=== PATIENT | male | born 1975 | race Caucasian/White ===

== ENCOUNTER 2017-05-02 00:09 | Inpatient (IN) | payer OTHER ==
[2017-05-02] MEDS ORDERED: morphine CARPU-JECT 4 MG/1 ML DISP.SYRIN IVPUSH ONE (01:53)
[2017-05-02] MEDS ORDERED: SODIUM CHLORIDE 0.9% 1000 ML INFUS.BAG IV ONE (01:53)
[2017-05-02] MEDS ORDERED: ACETAMINOPHEN 1000 MG/100 ML VIAL (NON FORMULARY) IVPB ONE (02:02)
--- NOTE | 2017-05-02 02:28 | PDOC ---
History of Present Illness - General Stated Complaint: ABDOMINAL PAIN, BLOOD IN STOOL Time Seen by Provider: 05/02/17 01:28 History Source: Patient Exam Limitations: No Limitations - History of Present Illness Initial Comments: 05/02/17 02:18 The patient is a 41M with a PMH of bipolar disorder on lithium, sleep disorder on seroquel, and unspecified GI disorder who presents to the ED with acute onset abdominal pain. The patient states that the pain started at 1700 on abruptly and is associated with bloody diarrhea that occurs with straining. The abdominal pain is located in his suprapubic and RLQ regions, is described as sharp, and radiates down to his testicles. He states that he has had abdominal pain in the past but it has never been this bad, to the point where he had tears in his eyes due to the pain. He admits to having no appetite, vomiting, and feeling nauseous in addition to the abdominal pain. He has not tried taking anything for the pain but is requesting morphine. He denies any testicular swelling, rashes, penile discharge. Past History - Past Medical History Allergies/Adverse Reactions: Allergies Allergy/AdvReac Type Severity Reaction Status Date / Time No Known Allergies Allergy Verified 05/02/17 01:46 Home Medications: Ambulatory Orders NK [No Known Home Medication] 05/02/17 - Suicide/Smoking/Psychosocial Hx Smoking History: Never smoked Have you smoked in the past 12 months: No Information on smoking cessation initiated: No Hx Alcohol Use: No Drug/Substance Use Hx: No Review of Systems - Review of Systems Able to Perform ROS?: Yes Comments:: 05/02/17 02:56 GENERAL/CONSTITUTIONAL: Positive for loss of appetite. No fever or chills. No weakness. HEAD, EYES, EARS, NOSE AND THROAT: No change in vision. No ear pain or discharge. No sore throat. GASTROINTESTINAL: Positive for abdominal pain, nausea, vomiting, and bloody diarrhea. GENITOURINARY: No dysuria, frequency, hematuria, or change in urination. CARDIOVASCULAR: No chest pain, palpitations, or lightheadedness. RESPIRATORY: No cough, wheezing, shortness of breath, or hemoptysis. MUSCULOSKELETAL: No joint or muscle swelling or pain. No neck or back pain. SKIN: No rash or lesions. NEUROLOGIC: No headache, numbness, tingling, weakness, loss of consciousness, or change in strength/sensation. ENDOCRINE: No increased thirst. No abnormal weight change. HEMATOLOGIC/LYMPHATIC: No anemia, easy bleeding, or history of blood clots. ALLERGIC/IMMUNOLOGIC: No hives or skin allergy. Is the patient limited Ivorian proficient: No *Physical Exam - Vital Signs Last Vital Signs Temp Pulse Resp BP Pulse Ox 98.8 F 97 H 16 158/96 98 05/02/17 01:39 05/02/17 01:39 05/02/17 01:39 05/02/17 01:39 05/02/17 01:39 - Physical Exam Comments: 05/02/17 02:57 GENERAL: Well developed, well nourished. Awake and alert. No acute distress. HEENT: Normocephalic, atraumatic. Hearing grossly normal. Moist mucous membranes. PERRLA, EOMI. No conjunctival pallor. Sclera are non-icteric. NECK: Supple. Full ROM. No JVD. Carotid pulses 2+ and symmetric, without bruits. CARDIOVASCULAR: Regular rate and rhythm. No murmurs, rubs, or gallops. PULMONARY: No evidence of respiratory distress. Lungs clear to auscultation bilaterally. No wheezing, rales or rhonchi. ABDOMINAL: Diffuse tenderness and RLQ quadrant guarding. GENITOURINARY: CVA tenderness bilaterally. MUSCULOSKELETAL: Normal range of motion at all joints. No bony deformities or tenderness. EXTREMITIES: No cyanosis. No clubbing. No edema. No calf tenderness. SKIN: Warm and dry. Normal capillary refill. No rashes. No jaundice. NEUROLOGICAL: Alert, awake, appropriate. Cranial nerves 2-12 intact. Normal speech. Gait is normal without ataxia. PSYCHIATRIC: Cooperative. Good eye contact. Appropriate mood and affect. ED Treatment Course - LABORATORY CBC & Chemistry Diagram: 05/02/17 02:34 05/02/17 02:34 - RADIOLOGY Radiology Studies Ordered: Category Date Time Status ABDOMEN & PELVIS CT WITH CONTR [CT] Stat CT Scan 05/02/17 01:57 Ordered CHEST X-RAY PORTABLE* [RAD] Stat Radiology 05/02/17 01:53 Taken - Medications Given in the ED: ED Medications Discontinued Medications Generic Name Dose Route Start Last Admin Trade Name Freq PRN Reason Stop Dose Admin Morphine Sulfate 4 mg 05/02/17 01:53 05/02/17 02:12 Morphine Injection - IVPUSH 05/02/17 01:54 Not Given ONCE ONE Medical Decision Making - Medical Decision Making 05/02/17 03:00 The patient is a 41M with a PMH of psych disorders and unspecified GI disorder who presents to the ED after having an acute onset of abdominal pain with associated bloody diarrhea and nausea with vomiting. He has diffuse guarding and I am concerned for an appendicitis. He has an Butt score of 6. Will order pre-op labs and CTAP with IV contrast. Pt has occult + stool. 05/02/17 03:24 I obtained a CXR to r/o perforation. Preliminary read is negative for free air. 05/02/17 04:15 CTAP shows Mild left-sided colitis could be due to infection, Crohn's disease or bowel ischemia. Added abx. 05/02/17 05:05 Dr. Marmolejo accepts admission for inpatient med-surg bed. *DC/Admit/Observation/Transfer Diagnosis at time of Disposition: Diverticulitis - Discharge Dispostion Condition at time of disposition: Fair Admit: Yes - Referrals Referrals: Errol Yang [Primary Care Provider] - - Patient Instructions - Post Discharge Activity
[2017-05-02 02:42] LABS: BASO % 0.2 % (0-2.0); EOS % 0.3 % (0-4.5)
[2017-05-02] MEDS ORDERED: ACETAMINOPHEN INJECTION 100 ML IVPB ONE (02:45)
[2017-05-02 02:56] LABS: INR 1.11 (0.82-1.09); PROTHROMBIN TIME (PATIENT) 12.5 SEC (9.98-11.88)
[2017-05-02 02:59] LABS: ACTIVATED PTT 28.1 SECONDS (26.9-34.4)
[2017-05-02 03:09] LABS: ALBUMIN 4.2 g/dl (3.4-5.0); ALK PHOS 68 U/L (45-117); ANION GAP 10 (8-16); BILIRUBIN,TOTAL 0.5 mg/dL (0.2-1.0); BLOOD UREA NITROGEN 16 mg/dL (7-18); CALCIUM 9.2 mg/dL (8.5-10.1); CHLORIDE 106 mmol/L (98-107); CO2 23 mmol/L (21-32); CREATININE 1.1 mg/dL (0.7-1.3); GLUCOSE,RANDOM 120 mg/dL (74-106); LIPASE 84 U/L (73-393); SGOT/AST 25 U/L (15-37); SGPT/ALT 21 U/L (12-78); SODIUM 139 mmol/L (136-145); TOT PROT 7.5 g/dl (6.4-8.2)
[2017-05-02] MEDS ORDERED: METRONIDAZOLE 500 MG PREMIXED 500 MG/100 ML MG IVPB ONE ×3 (04:04→08:54)
[2017-05-02] MEDS ORDERED: LEVOFLOXACIN 500 MG IVPB 500 MG/100 ML BAG IVPB ONE ×2 (04:04→04:31)
--- NOTE | 2017-05-02 04:05 | PDOC ---
Attending Attestation - Resident Resident Name: Louie Hunt - ED Attending Attestation I have performed the following: I have examined & evaluated the patient, The case was reviewed & discussed with the resident, I agree w/resident's findings & plan - HPI HPI: 05/02/17 04:04 Pt comes with abd pain - Physicial Exam PE: 05/02/17 04:30 Agree with resident exam. Pt has diffuse pain; no guarding at this point and no rebound. no fever and no chills. Everything else is normal. Pt is resting comfortably. - Medical Decision Making 05/02/17 04:03 Patient Name: TRISTA GOLDSTEIN THIS IS A PRELIMINARY REPORT FROM [facility]GR[facility] EQUIPMENT TECHNICIAN DATE OF SERVICE: 2017-05-02 03:27:48 IMAGES: [id number] EXAM: CT ABDOMEN AND PELVIS with contrast HISTORY: Right lower quadrant pain COMPARISON: None. FINDINGS: Subsegmental dependent atelectasis is noted. An old left rib fractures.. The visualized cardiac chambers are normal size and configuration. Normal liver, gallbladder, pancreas, spleen, adrenal glands and kidneys. The stomach and small bowel are normal. There is mild colonic inflammation extending from the distal transverse colon to the distal descending colon which may be due to infection, Crohn's disease or bowel ischemia. No bowel obstruction, abscess or free air. There is no aortic aneurysm. There is no significant retroperitoneal lymphadenopathy. The appendix is normal.. The urinary bladder and prostate gland are normal. No pelvic free fluid is identified. There is no significant pelvic lymphadenopathy. Is a small fat containing left inguinal hernia. IMPRESSION: Mild left-sided colitis could be due to infection, Crohn's disease or bowel ischemia. THIS DOCUMENT HAS BEEN ELECTRONICALLY SIGNED 05/02/17 04:31 ABx for the colitis. NSS and ofirmev; admit for GI bleed, infection and colitis. Pt will need GI follow up in or outpatient.
[2017-05-02 04:24] LABS: HEMATOCRIT 43.2 % (35.4-49); HEMOGLOBIN 14.8 GM/dL (11.7-16.9); LYMPH % 4.3 % (8-40); MCH 30.1 pg (25.7-33.7); MCHC 34.2 g/dl (32.0-35.9); MEAN CELL VOLUME 88.3 fl (80-96); MEAN PLT VOLUME 8.8 fl (7.5-11.1); MONO % 3.2 % (3.8-10.2); PLATELET COUNT 297 K/MM3 (134-434); RDW 13.1 % (11.9-15.9); WHITE BLOOD COUNT 14.3 K/mm3 (4.0-10.0)
[2017-05-02] MEDS ORDERED: ACETAMINOPHEN 325 MG TABLET (FP) PO PRN (05:23)
[2017-05-02] MEDS ORDERED: ONDANSETRON 4 MG/2 ML VIAL IVPB PRN (05:24)
[2017-05-02] MEDS ORDERED: morphine CARPU-JECT 10 MG/1 ML DISP.SYRIN IVPUSH PRN (05:29)
--- NOTE | 2017-05-02 05:31 | HP ---
Admitting History and Physical - Admission Chief Complaint: abd pain History of Present Illness: 41M with a PMH of bipolar disorder on lithium, sleep disorder on seroquel, chronic lower back pain, and unspecified GI disorder who presents to the ED with acute onset abdominal pain. he reports onset of pain yesterday. he reports "stabbing" lower abdomen 10/10 w/out any aggravating or alleviating factors. he reports associated nausea, vomiting (clear fluid), dark stools, sweats, chills. he reports having colonoscopy and endoscopy 2mons ago for evaluation of fecal urgency He states that both tests were negative. he does not recall the GI who performed the test. He denies feeling like this in the past. he denies sob, cp, cough, wheezing, dysuria, hx of crohns disease. 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 denies toxic habits famhx- mom- blood clots, lungs ca, dad- healthy no pcp Ros neg except for hpi Pex gen- obese, alert, non-toxic hent- at/nc, soha, neck supple, trachea midline gi- diffuse ttp, greater on left, no distention, no rigidity, no guarding, +bs psych- cooperative, no agitation neuro- alert, no facial droop, no seizures skin- no erythema resp- no cough, no cyanosis, lungs ctab cards- rrr, no jvd, no leg edema prob list colitis leukocytosis abd pain n/v gib chronic lbp bipolar disorder insomnia imagin05/02/17 04:03 Patient Name: TRISTA GOLDSTEIN THIS IS A PRELIMINARY REPORT FROM [facility] PROCESS[facility] DATE OF SERVICE: 2017-05-02 03:27:48 IMAGES: [id number] EXAM: CT ABDOMEN AND PELVIS with contrast HISTORY: Right lower quadrant pain COMPARISON: None. FINDINGS: Subsegmental dependent atelectasis is noted. An old left rib fractures.. The visualized cardiac chambers are normal size and configuration. Normal liver, gallbladder, pancreas, spleen, adrenal glands and kidneys. The stomach and small bowel are normal. There is mild colonic inflammation extending from the distal transverse colon to the distal descending colon which may be due to infection, Crohn's disease or bowel ischemia. No bowel obstruction, abscess or free air. There is no aortic aneurysm. There is no significant retroperitoneal lymphadenopathy. The appendix is normal.. The urinary bladder and prostate gland are normal. No pelvic free fluid is identified. There is no significant pelvic lymphadenopathy. Is a small fat containing left inguinal hernia. IMPRESSION: Mild left-sided colitis could be due to infection, Crohn's disease or bowel ischemia. a/p- 41M with a PMH of bipolar disorder on lithium, sleep disorder on seroquel, chronic lower back pain, and unspecified GI disorder who presents to the ED with acute onset abdominal pain admitted for their emergent condition. 1. abdomen pain possibly 2/2 colitis vs IBD vs ischemia- started on flagyl, and levaquin. check lactic acid. npo. GI consult 2. leukocytosis possibly 2/2 to #2 3. insomnia- cont home meds 4. bipolar disorder- cont home meds, check drug level 5. gastritis- cont ppi 6. chronic lower back pain- pain control 7. GIB -+FOBT, Hg NL, Pt reports taking Meloxicam for back pain. Avoid Nsaids. dvt prophy oob, scd, hold chemoprophy in setting of possible gib fen npo, ivf dispo- requires > 2mn stay for acute colitis History Source: Patient Limitations to Obtaining History: No Limitations - Smoking History Smoking history: Never smoked Have you smoked in the past 12 months: No - Alcohol/Substance Use Hx Alcohol Use: No Home Medications - Allergies Allergies/Adverse Reactions: Allergies Allergy/AdvReac Type Severity Reaction Status Date / Time No Known Allergies Allergy Verified 05/02/17 01:46 - Home Medications Home Medications: Ambulatory Orders Alprazolam 1 mg PO DAILY 05/02/17 Cyclobenzaprine HCl [Flexeril 10 mg] 10 mg PO TID 05/02/17 [place] Carbonate [Eskalith -] 900 mg PO HS 05/02/17 Oxycodone HCl [Oxycontin] 30 mg PO TID 05/02/17 Quetiapine Fumarate [Seroquel] 150 mg PO HS 05/02/17 Ciprofloxacin [Cipro -] 500 mg PO Q12H #8 tablet 05/04/17 Medical Supply, Miscellaneous [Blood Pressure Cuff] 1 each MC PRN 1 Days #1 each 05/04/17 Metronidazole [Flagyl -] 500 mg PO Q8H #12 tablet 01/16/18 Miscellaneous Drug Not In Syst [Outpatient Lab Test] 1 each ASDIR #1 misc Physical Examination Vital Signs: Vital Signs Temperature 98.8 F 05/02/17 01:39 Pulse Rate 97 H 05/02/17 01:39 Respiratory Rate 16 05/02/17 01:39 Blood Pressure 158/96 05/02/17 01:39 O2 Sat by Pulse Oximetry (%) 98 05/02/17 01:39 Labs: CBC, BMP 05/02/17 02:34 05/02/17 02:34 Visit type - Emergency Visit Emergency Visit: Yes ED Registration Date: 05/02/17 Care time: The patient presented to the Emergency Department on the above date and was hospitalized for further evaluation of their emergent condition. - New Patient This patient is new to me today: Yes Date on this admission: 05/05/17 - Critical Care Critical Care patient: No
[2017-05-02] MEDS: SODIUM CHLORIDE 1,000 ML IV SCH (06:23)
[2017-05-02] MEDS: METRONIDAZOLE 500 MG PREMIXED 500 MG/100 ML MG IVPB SCH ×2 (09:00→17:25)
[2017-05-02] MEDS ORDERED: oxyCODONE HCL 10 MG SUSTAINED ACTING TABLET PO PRN (09:46)
[2017-05-02 09:48] LABS: BASO % 0.1 % (0-2.0); EOS % 1.2 % (0-4.5); HEMATOCRIT 40.9 % (35.4-49); LYMPH % 7.6 % (8-40); MCHC 34.2 g/dl (32.0-35.9); MEAN CELL VOLUME 87.7 fl (80-96); MEAN PLT VOLUME 7.9 fl (7.5-11.1); MONO % 5.9 % (3.8-10.2); NEUT % 85.2 % (42.8-82.8); PLATELET COUNT 266 K/MM3 (134-434); RBC 4.66 M/mm3 (4.00-5.60); WHITE BLOOD COUNT 11.9 K/mm3 (4.0-10.0)
[2017-05-02] MEDS ORDERED: amLODIPine BESYLATE 5 MG TABLET (FP) PO SCH (10:00)
--- NOTE | 2017-05-02 10:03 | PN ---
Progress Note (short form) - Note Progress Note: Subjective: No fever or chills, report improvement in his Abd pain, but still has it , reports dark red blood per rectum since yesterday after her experienced the pain ( . 4 times since yesterday ) . N/V yesterday colo/EGD < 1 yr ago Objective: Vital Signs: Last Vital Signs Temp Pulse Resp BP Pulse Ox 98.1 F 79 18 157/105 99 05/02/17 09:27 05/02/17 09:27 05/02/17 09:27 05/02/17 09:27 05/02/17 09:27 Laboratory Results - last 24 hr 05/02/17 05/02/17 05/02/17 02:13 02:34 02:34 WBC 14.3 H RBC 4.90 Hgb 14.8 Hct 43.2 MCV 88.3 MCH 30.1 MCHC 34.2 RDW 13.1 Plt Count 297 MPV 8.8 Neutrophils % 92.0 H Lymphocytes % 4.3 L Monocytes % 3.2 L Eosinophils % 0.3 Basophils % 0.2 PT with INR 12.50 H INR 1.11 PTT (Actin FS) 28.1 Sodium Potassium Chloride Carbon Dioxide Anion Gap BUN Creatinine Creat Clearance w eGFR Random Glucose Lactic Acid Calcium Total Bilirubin AST ALT Alkaline Phosphatase Total Protein Albumin Lipase Stool Occult Blood Positive Blood Type Antibody Screen 05/02/17 05/02/17 05/02/17 02:34 02:34 06:36 WBC RBC Hgb Hct MCV MCH MCHC RDW Plt Count MPV Neutrophils % Lymphocytes % Monocytes % Eosinophils % Basophils % PT with INR INR PTT (Actin FS) Sodium 139 Potassium 4.0 Chloride 106 Carbon Dioxide 23 Anion Gap 10 BUN 16 Creatinine 1.1 Creat Clearance w eGFR > 60 Random Glucose 120 H Lactic Acid 0.7 Calcium 9.2 Total Bilirubin 0.5 AST 25 ALT 21 Alkaline Phosphatase 68 Total Protein 7.5 Albumin 4.2 Lipase 84 Stool Occult Blood Blood Type B POSITIVE Antibody Screen Negative 05/02/17 09:40 WBC 11.9 H RBC 4.66 Hgb 14.0 Hct 40.9 MCV 87.7 MCH 30.0 MCHC 34.2 RDW 13.0 Plt Count 266 MPV 7.9 D Neutrophils % 85.2 H Lymphocytes % 7.6 L D Monocytes % 5.9 D Eosinophils % 1.2 D Basophils % 0.1 PT with INR INR PTT (Actin FS) Sodium Potassium Chloride Carbon Dioxide Anion Gap BUN Creatinine Creat Clearance w eGFR Random Glucose Lactic Acid Calcium Total Bilirubin AST ALT Alkaline Phosphatase Total Protein Albumin Lipase Stool Occult Blood Blood Type Antibody Screen Physical Exam: NAD CV : RRR Lungs : CTAB ext : no edema Abd: obese , coft, TTP in all quadrants david in LLQ , and suprapubic area. Lungs : CTAB Rectal exam. NL hair distribution, blood around rectum. pt did not allow Md to complete rectal exam Assessment/Plan: 41 y/o man with h/o bipolar , anxiety , chronic back ain , and other medical problems who presented with sever sudden onset Abd pain and rectal bleed . 1- ABd pain and lower GI bleed: suspicion for ischemic colitis with this sudden onset abd pain and rectal bleed. of course infectious colitis can't be r/o especially with leukocytosis. hemorrhoidal bleed is possible , but will not explain the abd pain unfortunately rectal exam was not complete - IVF , keep enough volume - avoid hypotension - Echo - GI consult. - repeat CBC now and at 3 pm - avoid any blood thinners. - hold home meloxicam - might need flex sig - change Abx to ceftriaxone and flagyl - stool cx if BM - for pain, cont his home regimen only 2- chronci back pain: cont oxycontin TID 3- h/o Bipolar and anxiety : - cont lithium and xanax 4- HTN: might have essential hypertension at base line , btu might be highr now due to pain. - will try to avoid anti-hypertensives as ischemic colitis is suspected - observe 5- SCDs Visit type - Emergency Visit Emergency Visit: Yes ED Registration Date: 05/02/17 Care time: The patient presented to the Emergency Department on the above date and was hospitalized for further evaluation of their emergent condition. - New Patient This patient is new to me today: No - Critical Care Critical Care patient: No
[2017-05-02 10:12] LABS: ALBUMIN 3.5 g/dl (3.4-5.0); ANION GAP 7 (8-16); BLOOD UREA NITROGEN 12 mg/dL (7-18); CHLORIDE 109 mmol/L (98-107); CO2 23 mmol/L (21-32); GLUCOSE,RANDOM 116 mg/dL (74-106); POTASSIUM 3.7 mmol/L (3.5-5.1); SODIUM 139 mmol/L (136-145)
[2017-05-02 10:16] LABS: ALK PHOS 66 U/L (45-117); BILIRUBIN,TOTAL 0.7 mg/dL (0.2-1.0); SGOT/AST 16 U/L (15-37); SGPT/ALT 19 U/L (12-78); TOT PROT 6.7 g/dl (6.4-8.2)
[2017-05-02] MEDS: oxyCODONE HCL 10 MG SUSTAINED ACTING TABLET PO SCH ×3 (11:43→21:10)
[2017-05-02] MEDS: ALPRAZolam 0.25 MG TABLET PO PRN (11:47)
--- NOTE | 2017-05-02 12:31 | CON.GI ---
Consult Consult Specialty:: GI: Dr. Spaulding covering for Dr. Recinos who resumes care Referred by:: Hospitalist service Reason for Consultation:: Abdominal pain and colitis - History of Present Illness Chief Complaint: Abdominal pain and rectal bleeding History of Present Illness: 41F admitted through [facility] for evaluation of sudden onset abdominal pain. This occurred at 5pm last night, was left sided and associated with nausea and vomiting. He subsequently had two blood bowel movements with clots. He has seen two gastroenterologists for "stomach issues in the past" the last being on [place] within this past year. He underwent EGD/Colonoscopy at that time (for evaluation of abdominal bloating / fecal urgency without diarrhea episodes however) that he describes as being unrevealing. He currently denies recent travel, change in diet prior to onset of symptoms (had chicken soup for lunch that the remainder of his family ate without incident), diarrheal episodes, diarrhea since the onset of his rectal bleeding. He has recently been started on meloxicam for lower back pain over the last 2-3 months and oxycontin for the last 7 months but denies constipation / strained bowel movements. Otherwise, there has been no change to his medication regimen. There is no family history of colorectal cancer / IBD. 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 Place of : [facility] History of Recent Travel: No Home Medications - Allergies Allergies/Adverse Reactions: Allergies Allergy/AdvReac Type Severity Reaction Status Date / Time No Known Allergies Allergy Verified 05/02/17 01:46 - Home Medications Home Medications: Ambulatory Orders Alprazolam 1 mg PO DAILY 05/02/17 [place] Carbonate [Eskalith -] 900 mg PO HS 05/02/17 Meloxicam 15 mg PO HS 05/02/17 Oxycodone HCl [Oxycontin] 30 mg PO TID 05/02/17 Quetiapine Fumarate [Seroquel] 150 mg PO HS 05/02/17 Family Disease History - Family Disease History Family Disease History: Other: Father (Alive: healthy), Mother (: 53 Lung Ca (smoker)), Brother (1, healthy) Other Family History: No family history of colorectal cancer / IBD Review of Systems - Review of Systems Constitutional: reports: Chills. denies: Unintentional Wgt. Loss Cardiovascular: denies: Chest Pain Respiratory: denies: Cough, SOB Gastrointestinal: reports: Abdominal Pain, Rectal Bleeding, Vomiting (resolved) . denies: Melena Physical Exam-GI Vital Signs: Vital Signs Temperature 98.1 F 05/02/17 09:27 Pulse Rate 79 05/02/17 09:27 Respiratory Rate 18 05/02/17 09:27 Blood Pressure 157/105 05/02/17 09:27 O2 Sat by Pulse Oximetry (%) 99 05/02/17 09:27 Constitutional: Yes: Calm Eyes: No: Sclera Icterus Cardiovascular: Yes: Regular Rate and Rhythm. No: Murmur Respiratory: Yes: CTA Bilaterally Gastrointestinal Inspection: No: Distention, Scars ...Auscultate: Yes: Normoactive Bowel Sounds ...Palpate: Yes: Tenderness (TTP LUQ). No: Guarding, Tenderness, Rebound ...Percussion: No: Tympanitic ...Rectal Exam: Yes: Other (No blood/melena/masses) Edema: No (No LE edema) Neurological: Yes: Alert, Oriented Labs: CBC, BMP 05/02/17 09:40 05/02/17 09:40 INR, PTT INR 1.11 (0.82-1.09) 05/02/17 02:34 Hepatic Panel Total Bilirubin 0.7 mg/dL (0.2-1.0) D 05/02/17 09:40 AST 16 U/L (15-37) D 05/02/17 09:40 ALT 19 U/L (12-78) 05/02/17 09:40 Alkaline Phosphatase 66 U/L (45-117) 05/02/17 09:40 Albumin 3.5 g/dl (3.4-5.0) 05/02/17 09:40 Imaging - Results Cat Scan: Report Reviewed (prelim report: left sided colitis), Image Reviewed Problem List - Problems (1) Colitis Assessment/Plan: Segmental left sided colitis: Given location of colitis on CT scan (proximal left colon / splenic flexure), acuity of symptoms along with predominantly rectal bleeding as opposed to diarrhea, suspect ischemic colitis higher in differential as opposed to a diverticulitis or IBD. IBD usually more insidious in nature. ? etiology ( regular NSAID use over the last 2-3 months for back pain) For now: NPO, Advance to clears for dinner if pain continues to improve IV hydration IV Abx Will likely need colonoscopy during admission for further eval. Possibly tues Dr. Richardson will resume coverage for Dr. Recinos's group tomorrow 05/03 Code(s): K52.9 - NONINFECTIVE GASTROENTERITIS AND COLITIS, UNSPECIFIED
[2017-05-02 15:27] LABS: HEMATOCRIT 41.2 % (35.4-49); MCH 30.1 pg (25.7-33.7); MEAN CELL VOLUME 88.5 fl (80-96); MEAN PLT VOLUME 8.3 fl (7.5-11.1); PLATELET COUNT 264 K/MM3 (134-434); RBC 4.66 M/mm3 (4.00-5.60); RDW 12.9 % (11.9-15.9); WHITE BLOOD COUNT 12.5 K/mm3 (4.0-10.0)
[2017-05-02] MEDS ORDERED: LEVOFLOXACIN 500 MG IVPB 500 MG/100 ML BAG IVPB SCH (16:00)
[2017-05-02 16:01] VITALS: BMI 29.7
[2017-05-02] MEDS: CEFTRIAXONE 1 G/50 ML PREMIX 50 ML IVPB SCH (16:13)
[2017-05-02] MEDS: LITHIUM CARBONATE 300 MG CAPSULE (FP) PO SCH (21:10)
[2017-05-02 21:52] LABS: URINE APPEARANCE CLEAR; URINE BILIRUBIN NEGATIVE (NEGATIVE); URINE BLOOD 1+ (NEGATIVE); URINE COLOR YELLOW; URINE GLUCOSE (UA) NEGATIVE (NEGATIVE); URINE KETONE 1+ (NEGATIVE); URINE LEUK ESTERASE TRACE (NEGATIVE); URINE NITRITE NEGATIVE (NEGATIVE); URINE PROTEIN NEGATIVE (NEGATIVE); URINE UROBILINOGEN NEGATIVE mg/dL (0.2-1.0)
[2017-05-02 21:55] LABS: EPI CELLS RARE /HPF (FEW); URINE MUCUS RARE
[2017-05-02] MEDS ORDERED: ALPRAZolam 0.25 MG TABLET PO ONE (22:15)
[2017-05-02] MEDS ORDERED: QUEtiapine FUMARATE 100 MG TABLET (FP) PO ONE (23:43)
[2017-05-03] MEDS: SODIUM CHLORIDE 1,000 ML IV SCH ×2 (01:58→05:58)
[2017-05-03] MEDS: METRONIDAZOLE 500 MG PREMIXED 500 MG/100 ML MG IVPB SCH ×3 (01:58→20:03)
[2017-05-03] MEDS: oxyCODONE HCL 10 MG SUSTAINED ACTING TABLET PO SCH ×3 (06:00→23:00)
[2017-05-03 08:04] LABS: BASO % 0.2 % (0-2.0); EOS % 3.3 % (0-4.5); HEMATOCRIT 38.8 % (35.4-49); HEMOGLOBIN 13.3 GM/dL (11.7-16.9); LYMPH % 14.1 % (8-40); MCH 30.6 pg (25.7-33.7); MCHC 34.4 g/dl (32.0-35.9); MEAN PLT VOLUME 8.6 fl (7.5-11.1); MONO % 5.1 % (3.8-10.2); NEUT % 77.3 % (42.8-82.8); PLATELET COUNT 234 K/MM3 (134-434); RBC 4.36 M/mm3 (4.00-5.60); RDW 13.2 % (11.9-15.9); WHITE BLOOD COUNT 10.6 K/mm3 (4.0-10.0)
[2017-05-03 08:22] LABS: ANION GAP 11 (8-16); BLOOD UREA NITROGEN 9 mg/dL (7-18); CALCIUM 8.2 mg/dL (8.5-10.1); CHLORIDE 108 mmol/L (98-107); CO2 23 mmol/L (21-32); GLUCOSE,RANDOM 84 mg/dL (74-106); POTASSIUM 3.7 mmol/L (3.5-5.1); SODIUM 142 mmol/L (136-145)
[2017-05-03 08:24] LABS: CREATININE 1.1 mg/dL (0.7-1.3)
--- NOTE | 2017-05-03 11:37 | EKG ---
Test Reason : Blood Pressure : / mmHG Vent. Rate : 078 BPM Atrial Rate : 078 BPM P-R Int : 130 ms QRS Dur : 092 ms QT Int : 378 ms P-R-T Axes : 027 023 025 degrees QTc Int : 430 ms NORMAL SINUS RHYTHM WITH SINUS ARRHYTHMIA NORMAL ECG NO PREVIOUS ECGS AVAILABLE Confirmed by SAULO CURRAN MD ([id number]) on 05/03/2017 11:36:56 AM Referred By: Confirmed By:SAULO CURRAN MD
--- NOTE | 2017-05-03 15:04 | PN ---
Progress Note, Physician - Current Medication List Current Medications: Active Medications Acetaminophen (Tylenol -) 650 mg PO Q6H PRN PRN Reason: PAIN Alprazolam (Xanax -) 1 mg PO DAILY PRN PRN Reason: ANXIETY Last Admin: 05/02/17 11:47 Dose: 1 mg Metronidazole (Flagyl 500mg Premixed Ivpb -) 500 mg in 100 mls @ 100 mls/hr IVPB Q8H-IV SHEFALI Last Admin: 05/03/17 10:57 Dose: 100 mls/hr Sodium Chloride (Normal Saline -) 1,000 mls @ 100 mls/hr IV ASDIR SHEFALI Last Admin: 05/03/17 05:58 Dose: Not Given CEFTRIAXONE 1 G/50 ML PREMIX (Ceftriaxone 1 Gm-D5w Bag) 50 mls @ 100 mls/hr IVPB DAILY@1600 [facility] Last Admin: 05/02/17 16:13 Dose: 100 mls/hr [place] Carbonate (Eskalith -) 900 mg PO HS [facility] Last Admin: 05/02/17 21:10 Dose: 900 mg Ondansetron HCl (Zofran Injection) 8 mg IVPB Q6H PRN PRN Reason: NAUSEA - Objective Vital Signs: Vital Signs Temperature 97.4 F L 05/03/17 06:57 Pulse Rate 89 05/03/17 06:57 Respiratory Rate 20 05/03/17 06:57 Blood Pressure 113/73 05/03/17 06:57 O2 Sat by Pulse Oximetry (%) 96 05/03/17 03:00 Labs: CBC, BMP 05/03/17 06:00 05/03/17 06:00 INR, PTT INR 1.11 (0.82-1.09) 05/02/17 02:34
--- NOTE | 2017-05-03 15:11 | PN ---
Progress Note, Physician History of Present Illness: No events. CT results and consult noted. The pt offers no complaints. - Current Medication List Current Medications: Active Medications Acetaminophen (Tylenol -) 650 mg PO Q6H PRN PRN Reason: PAIN Alprazolam (Xanax -) 1 mg PO DAILY PRN PRN Reason: ANXIETY Last Admin: 05/02/17 11:47 Dose: 1 mg Metronidazole (Flagyl 500mg Premixed Ivpb -) 500 mg in 100 mls @ 100 mls/hr IVPB Q8H-IV SHEFALI Last Admin: 05/03/17 10:57 Dose: 100 mls/hr Sodium Chloride (Normal Saline -) 1,000 mls @ 100 mls/hr IV ASDIR SHEFALI Last Admin: 05/03/17 05:58 Dose: Not Given CEFTRIAXONE 1 G/50 ML PREMIX (Ceftriaxone 1 Gm-D5w Bag) 50 mls @ 100 mls/hr IVPB DAILY@1600 SHEFALI Last Admin: 05/02/17 16:13 Dose: 100 mls/hr [place] Carbonate (Eskalith -) 900 mg PO HS [facility] Last Admin: 05/02/17 21:10 Dose: 900 mg Ondansetron HCl (Zofran Injection) 8 mg IVPB Q6H PRN PRN Reason: NAUSEA - Objective Vital Signs: Vital Signs Temperature 97.4 F L 05/03/17 06:57 Pulse Rate 89 05/03/17 06:57 Respiratory Rate 20 05/03/17 06:57 Blood Pressure 113/73 05/03/17 06:57 O2 Sat by Pulse Oximetry (%) 96 05/03/17 03:00 Constitutional: Yes: Well Nourished, No Distress, Calm Eyes: Yes: Conjunctiva Clear HENT: Yes: Atraumatic Neck: Yes: Supple Cardiovascular: Yes: Regular Rate and Rhythm Respiratory: Yes: Regular Gastrointestinal: Yes: Normal Bowel Sounds, Soft. No: Melena, Tenderness, Vomiting Neurological: Yes: Alert, Oriented Labs: CBC, BMP 05/03/17 06:00 05/03/17 06:00 INR, PTT INR 1.11 (0.82-1.09) 05/02/17 02:34 Laboratory Results - last 24 hr 05/02/17 05/02/17 05/03/17 15:00 21:00 06:00 WBC 12.5 H 10.6 H RBC 4.66 4.36 Hgb 14.0 13.3 Hct 41.2 38.8 MCV 88.5 89.0 MCH 30.1 30.6 MCHC 34.0 34.4 RDW 12.9 13.2 Plt Count 264 234 MPV 8.3 8.6 Neutrophils % 77.3 Lymphocytes % 14.1 D Monocytes % 5.1 Eosinophils % 3.3 D Basophils % 0.2 Sodium Potassium Chloride Carbon Dioxide Anion Gap BUN Creatinine Random Glucose Calcium Urine Color Yellow Urine Appearance Clear Urine pH 6.0 Ur Specific [place] 1.019 Urine Protein Negative Urine Glucose (UA) Negative Urine Ketones 1+ H Urine Blood 1+ H Urine Nitrite Negative Urine Bilirubin Negative Urine Urobilinogen Negative Ur Leukocyte Esterase Trace Urine WBC (Auto) 6 Urine RBC (Auto) 2 Ur Epithelial Cells Rare Urine Mucus Rare 05/03/17 06:00 WBC RBC Hgb Hct MCV MCH MCHC RDW Plt Count MPV Neutrophils % Lymphocytes % Monocytes % Eosinophils % Basophils % Sodium 142 Potassium 3.7 Chloride 108 H Carbon Dioxide 23 Anion Gap 11 BUN 9 D Creatinine 1.1 Random Glucose 84 D Calcium 8.2 L Urine Color Urine Appearance Urine pH Ur Specific [place] Urine Protein Urine Glucose (UA) Urine Ketones Urine Blood Urine Nitrite Urine Bilirubin Urine Urobilinogen Ur Leukocyte Esterase Urine WBC (Auto) Urine RBC (Auto) Ur Epithelial Cells Urine Mucus Problem List - Problems (1) Hematochezia Code(s): K92.1 - MELENA (2) Colitis Code(s): K52.9 - NONINFECTIVE GASTROENTERITIS AND COLITIS, UNSPECIFIED Assessment/Plan Colitis nad hematochezia in a 41 yom. Likely acute etiology of colitis, r/o IBD plan colonoscopy with biopsies follow stool cx, op, c.diff discussed with the patient
[2017-05-03] MEDS ORDERED: PEG 3350/NA SULF BICARB CL/KCL 4000 ML SOLN.RECON PO ONE (15:30)
[2017-05-03] MEDS ORDERED: BISACODYL 5 MG TABLET.DR (FP) PO ONE (15:30)
--- NOTE | 2017-05-03 15:51 | PN ---
Teaching Attending Note Name of Resident: Matt Quiñonez ATTENDING PHYSICIAN STATEMENT I saw and evaluated the patient. I reviewed the resident's note and discussed the case with the resident. I agree with the resident's findings and plan as documented. SUBJECTIVE: no fever or chills, cont with abd pain OBJECTIVE: NAD CV : RRR Lungs : CTAB ext : no edema Abd: obese ,ND , TTP in all quadrants david in LLQ , and suprapubic area. no rebound tenderness or guarding Lungs: CTAB Assessment/Plan: 41 y/o man with h/o bipolar , anxiety , chronic back ain , and other medical problems who presented with sever sudden onset Abd pain and rectal bleed . 1- ABd pain and lower GI bleed: suspicion for ischemic colitis with this sudden onset abd pain and rectal bleed. infectious can't r/o - cont IVF - start clear - for colo tomorrow - cont ABx 2- chronic back pain: cont oxycontin TID 3- h/o Bipolar and anxiety : - cont lithium and xanax 4- HTN: resolved , likely response to pain and stress . monitor 5- SCDs
[2017-05-03] MEDS: ALPRAZolam 0.25 MG TABLET PO PRN (16:22)
[2017-05-03] MEDS: CEFTRIAXONE 1 G/50 ML PREMIX 50 ML IVPB SCH (16:23)
--- NOTE | 2017-05-03 18:37 | PN ---
Physical Exam: SUBJECTIVE: Patient seen and examined at bedside. Patient denies further abdominal pain. He is scheduled for a colonoscopy tomorrow. Patient is tolerating a clear liquid diet. Denies bloody bowel movements. OBJECTIVE: Vital Signs Period Temp Pulse Resp BP Sys/Bowles Pulse Ox Last 24 Hr 97.4 F-99.2 F 89-103 18-20 113-142/73-93 95-96 GENERAL: The patient is awake, alert, and fully oriented, in no acute distress. HEAD: Normal with no signs of trauma. EYES: PERRL, extraocular movements intact, sclera anicteric, conjunctiva clear. No ptosis. ENT: Ears normal, nares patent, oropharynx clear without exudates, moist mucous membranes. NECK: Trachea midline, full range of motion, supple. LUNGS: Breath sounds equal, clear to auscultation bilaterally, no wheezes, no crackles, no accessory muscle use. HEART: Regular rate and rhythm, S1, S2 without murmur, rub or gallop. ABDOMEN: Soft, tender to palpation in the LLQ, nondistended, normoactive bowel sounds, no guarding, no rebound, no hepatosplenomegaly, no masses. EXTREMITIES: 2+ pulses, warm, well-perfused, no edema. NEUROLOGICAL: Cranial nerves II through XII grossly intact. Normal speech, gait not observed. PSYCH: Normal mood, normal affect. SKIN: Warm, dry, normal turgor, no rashes or lesions noted Laboratory Results - last 24 hr 05/02/17 05/03/17 05/03/17 21:00 06:00 06:00 WBC 10.6 H RBC 4.36 Hgb 13.3 Hct 38.8 MCV 89.0 MCH 30.6 MCHC 34.4 RDW 13.2 Plt Count 234 MPV 8.6 Neutrophils % 77.3 Lymphocytes % 14.1 D Monocytes % 5.1 Eosinophils % 3.3 D Basophils % 0.2 Sodium 142 Potassium 3.7 Chloride 108 H Carbon Dioxide 23 Anion Gap 11 BUN 9 D Creatinine 1.1 Random Glucose 84 D Calcium 8.2 L Urine Color Yellow Urine Appearance Clear Urine pH 6.0 Ur Specific [place] 1.019 Urine Protein Negative Urine Glucose (UA) Negative Urine Ketones 1+ H Urine Blood 1+ H Urine Nitrite Negative Urine Bilirubin Negative Urine Urobilinogen Negative Ur Leukocyte Esterase Trace Urine WBC (Auto) 6 Urine RBC (Auto) 2 Ur Epithelial Cells Rare Urine Mucus Rare Active Medications Generic Name Dose Route Start Last Admin Trade Name Freq PRN Reason Stop Dose Admin Acetaminophen 650 mg 05/02/17 05:23 Tylenol - PO Q6H PRN PAIN Alprazolam 1 mg 05/02/17 10:33 05/03/17 16:22 Xanax - PO 1 mg DAILY PRN Administration ANXIETY Metronidazole 500 mg in 100 mls @ 100 mls/hr 05/02/17 10:00 05/03/17 10:57 Flagyl 500mg Premixed Ivpb - IVPB 100 mls/hr Q8H-IV SHEFALI Administration Sodium Chloride 1,000 mls @ 100 mls/hr 05/02/17 05:30 05/03/17 05:58 Normal Saline - IV Not Given ASDIR SHEFALI CEFTRIAXONE 1 G/50 ML PREMIX 50 mls @ 100 mls/hr 05/02/17 16:00 05/03/17 16: 23 Ceftriaxone 1 Gm-D5w Bag IVPB 100 mls/hr DAILY@1600 SHEFALI Administration [place] Carbonate 900 mg 05/02/17 22:00 05/02/17 21:10 Eskalith - PO 900 mg HS SHEFALI Administration Ondansetron HCl 8 mg 05/02/17 05:24 Zofran Injection IVPB Q6H PRN NAUSEA Oxycodone HCl 30 mg 05/03/17 17:00 05/03/17 16:58 Oxycontin - PO 30 mg TID SHEFALI Administration ASSESSMENT/PLAN: 41 year old male with a past medical history of bipolar disorder on lithium, unspecified GI disease, and chronic back pain is admitted to the hospital for colitis. #L sided Colitis: like 2/2 ischemic colitis vs IBD or diverticulitis -clear liquid diet until midnight -NPO after midnight for colonoscopy tomorrow -hold meloxicam -continue oxycontin from home -A1C check #Bipolar: controlled -lithium level pending #Hypertension: controlled, likely 2/2 pain #Back pain: controlled #FEN: -clears liquid, then NPO after midnight -replete lytes as necessary -NS @ 100 #Prophylaxis: -SCDs #Disposition: -continue to monitor on med-surg Visit type - Emergency Visit Emergency Visit: No - New Patient This patient is new to me today: Yes Date on this admission: 05/03/17 - Critical Care Critical Care patient: No
[2017-05-03] MEDS ORDERED: ONDANSETRON *ODT* 4 MG TABLET SL PRN (19:07)
[2017-05-03] MEDS: LITHIUM CARBONATE 300 MG CAPSULE (FP) PO SCH (23:10)
[2017-05-04] MEDS: METRONIDAZOLE 500 MG PREMIXED 500 MG/100 ML MG IVPB SCH ×3 (01:47→17:55)
[2017-05-04] MEDS: oxyCODONE HCL 10 MG SUSTAINED ACTING TABLET PO SCH ×3 (07:38→15:01)
[2017-05-04 07:47] LABS: HEMATOCRIT 38.7 % (35.4-49); HEMOGLOBIN 13.1 GM/dL (11.7-16.9); MCHC 33.9 g/dl (32.0-35.9); MEAN CELL VOLUME 88.5 fl (80-96); MEAN PLT VOLUME 8.3 fl (7.5-11.1); PLATELET COUNT 269 K/MM3 (134-434); RBC 4.37 M/mm3 (4.00-5.60); RDW 12.9 % (11.9-15.9); WHITE BLOOD COUNT 13.4 K/mm3 (4.0-10.0)
[2017-05-04 08:16] LABS: ANION GAP 12 (8-16); BLOOD UREA NITROGEN 7 mg/dL (7-18); CALCIUM 8.1 mg/dL (8.5-10.1); CHLORIDE 106 mmol/L (98-107); CO2 23 mmol/L (21-32); GLUCOSE,RANDOM 84 mg/dL (74-106); MAGNESIUM 1.9 mg/dL (1.8-2.4); POTASSIUM 3.4 mmol/L (3.5-5.1); SODIUM 141 mmol/L (136-145)
[2017-05-04 08:17] LABS: CREATININE 1.1 mg/dL (0.7-1.3)
[2017-05-04] MEDS: ALPRAZolam 0.25 MG TABLET PO PRN (08:57)
--- NOTE | 2017-05-04 12:04 | PROC ---
Endoscopy Procedure Endoscopy procedure completed. Please see scanned procedure report. Moderate colitis in distal transverse, proximal descending colon, didn't appear to be ischemic, despite the location. Biopsies taken, r/o infection, r/o IBD, ? Ischemic colitis. Normal appearing TI and the rest of the colon. Random biopsies taken. Follow stool test results Follow biopsies as PO in 1 week.
[2017-05-04 12:48] LABS: HEMATOCRIT 39.6 % (35.4-49); HEMOGLOBIN 13.3 GM/dL (11.7-16.9); MCH 29.8 pg (25.7-33.7); MCHC 33.6 g/dl (32.0-35.9); MEAN CELL VOLUME 88.5 fl (80-96); MEAN PLT VOLUME 7.9 fl (7.5-11.1); PLATELET COUNT 252 K/MM3 (134-434); RBC 4.47 M/mm3 (4.00-5.60); RDW 12.6 % (11.9-15.9); WHITE BLOOD COUNT 12.2 K/mm3 (4.0-10.0)
--- NOTE | 2017-05-04 13:41 | PN ---
Physical Exam: SUBJECTIVE: Patient seen and examined at bedside. No acute overnight events. Patient complains of generalized abdominal pain but doesn't localize it to any particular area of the abdomen. He has been prepped with [facility] for colonoscopy today with Dr. Richardson. Denies chest pain, SOB, nausea, vomiting, fevers, chills. OBJECTIVE: Vital Signs Period Temp Pulse Resp BP Sys/Bowles Pulse Ox Last 24 Hr 97.5 F-99 F 93-112 18-21 115-155/62-97 90-100 GENERAL: The patient is awake, alert, and fully oriented, in no acute distress. HEAD: Normal with no signs of trauma. NECK: Trachea midline, full range of motion, supple. LUNGS: Breath sounds equal, clear to auscultation bilaterally, no wheezes, no crackles, no accessory muscle use. HEART: Regular rate and rhythm, S1, S2 without murmur, rub or gallop. ABDOMEN: Soft, tender to palpation in the LLQ and RLQ. Mildly tender in the upper quadrants. nondistended, normoactive bowel sounds, no guarding, no rebound , no hepatosplenomegaly, no masses. EXTREMITIES: 2+ pulses, warm, well-perfused, no edema. NEUROLOGICAL: Cranial nerves II through XII grossly intact. Normal speech, gait not observed. PSYCH: Normal mood, normal affect. SKIN: Warm, dry, normal turgor, no rashes or lesions noted Laboratory Results - last 24 hr 05/02/17 05/04/17 05/04/17 07:33 06:00 06:00 WBC 13.4 H RBC 4.37 Hgb 13.1 Hct 38.7 MCV 88.5 MCH 30.0 MCHC 33.9 RDW 12.9 Plt Count 269 MPV 8.3 Sodium Potassium Chloride Carbon Dioxide Anion Gap BUN Creatinine Random Glucose Hemoglobin A1c % 4.9 Calcium Phosphorus Magnesium [place] 0.6 05/04/17 05/04/17 06:00 12:39 WBC 12.2 H RBC 4.47 Hgb 13.3 Hct 39.6 MCV 88.5 MCH 29.8 MCHC 33.6 RDW 12.6 Plt Count 252 MPV 7.9 Sodium 141 Potassium 3.4 L Chloride 106 Carbon Dioxide 23 Anion Gap 12 BUN 7 D Creatinine 1.1 Random Glucose 84 Hemoglobin A1c % Calcium 8.1 L Phosphorus 4.0 Magnesium 1.9 [place] Active Medications Generic Name Dose Route Start Last Admin Trade Name Mateoq PRN Reason Stop Dose Admin Acetaminophen 650 mg 05/02/17 05:23 Tylenol - PO Q6H PRN PAIN Alprazolam 1 mg 05/02/17 10:33 05/04/17 08:57 Xanax - PO 1 mg DAILY PRN Administration ANXIETY Metronidazole 500 mg in 100 mls @ 100 mls/hr 05/02/17 10:00 05/04/17 01:47 Flagyl 500mg Premixed Ivpb - IVPB Not Given Q8H-IV SHEFALI Sodium Chloride 1,000 mls @ 100 mls/hr 05/02/17 05:30 05/03/17 05:58 Normal Saline - IV Not Given ASDIR SHEFALI CEFTRIAXONE 1 G/50 ML PREMIX 50 mls @ 100 mls/hr 05/02/17 16:00 05/03/17 16: 23 Ceftriaxone 1 Gm-D5w Bag IVPB 100 mls/hr DAILY@1600 SHEFALI Administration [place] Carbonate 900 mg 05/02/17 22:00 05/03/17 23:10 Eskalith - PO 900 mg HS SHEFALI Administration Mesalamine 800 mg 05/04/17 14:00 Asacol Hd - PO TID SHEFALI Ondansetron HCl 8 mg 05/03/17 19:07 05/03/17 19:18 Zofran Odt - SL 8 mg Q8H PRN Administration NAUSEA Oxycodone HCl 30 mg 05/03/17 17:00 05/04/17 08:57 Oxycontin - PO 30 mg TID SHEFALI Administration ASSESSMENT/PLAN: 41 year old male with a past medical history of bipolar disorder on lithium, unspecified GI disease, and chronic back pain is admitted to the hospital for colitis. #L sided Colitis: like 2/2 infx vs IBD vs ischemic colitis -pt is s/p colonoscopy with Dr. Richardson -results indicate, per Dr. Richardson: moderate colitis in distal transverse, proximal descending colon, didn't appear to be ischemic, despite the location. Biopsies taken, -Follow stool test results -continue flagyl 500 Q8 -started mesalamine -appreciate GI recommendations -start cholesterol, fat reduced diet for dinner -hold meloxicam -continue oxycontin from home #Bipolar: controlled -lithium normal #Hypertension: controlled, likely 2/2 pain #Back pain: controlled #FEN: -cholesterol/fat reduced diet -replete lytes as necessary -NS @ 100 #Prophylaxis: -SCDs #Disposition: -continue to monitor on med-surg Visit type - Emergency Visit Emergency Visit: No - New Patient This patient is new to me today: No - Critical Care Critical Care patient: No
[2017-05-04] MEDS ORDERED: MESALAMINE 800 MG TABLET.DR PO SCH (14:00)
--- NOTE | 2017-05-04 17:56 | PN ---
Teaching Attending Note Name of Resident: Matt Quiñonez ATTENDING PHYSICIAN STATEMENT I saw and evaluated the patient. I reviewed the resident's note and discussed the case with the resident. I agree with the resident's findings and plan as documented. SUBJECTIVE: No fever or chills. has no fever or chills, feels great ASSESSMENT AND PLAN: 41 y/o man with h/o bipolar , anxiety , chronic back ain , and other medical problems who presented with sever sudden onset Abd pain and rectal bleed . 1- ABd pain and lower GI bleed: colonoscopy with colitis , IBD vs infectious did not have any diarrhea . stool studies were not sent Bx taken during colonoscopy - today day 3 of abx , will continue with cipro and flagyl x 4 more days to finish 7 day course 2- chronic back pain: cont oxycontin TID at home dose, no prescription at dc 3- h/o Bipolar and anxiety : - cont lithium and xanax 4- HTN: prescribe a BP cuff to check daily , f/u with PCP to r/o essential HTn DC home . f/u with GI to f/u on Bx
[2017-05-04] MEDS: CEFTRIAXONE 1 G/50 ML PREMIX 50 ML IVPB SCH (17:59)
[2017-05-04 19:08] VITALS: BP 124/72; PULSE 112; TEMP 98.2
[2017-05-04] MEDS: SODIUM CHLORIDE 1,000 ML IV SCH (20:16)
--- NOTE | 2017-05-04 20:28 | DS ---
Physical Exam: HOSPITAL COURSE: Date of Admission:05/02/17 41 year old male with a past medical history of bipolar disorder on lithium, unspecified gastrointestinal disease, and chronic back pain presented to the hospital with 10/10 stabbing lower abdominal pain with nausea, vomiting, dark stools, sweats, fevers, and chills. He had a colonoscopy 2 months ago without any abnormalities. Patient had a CT scan performed that showed L sided colitis. Differentials at the time consisted of ischemic vs infectious vs IBD in etiology. Patient was kept NPO, treated with fluids and antibiotics (cipro/ flagyl) and underwent colonoscopy that showed moderate colitis in distal transverse, proximal descending colon, didn't appear to be ischemic, despite the location. Biopsies were taken. Patient felt improved before the colonoscopy and was tolerating clear liquid diet. After colonoscopy, patient was sent home on cipro/flagyl oral and instructions to follow with his PCP and the electrical prospecting operator Dr. Ishan Richardson to follow up for the colitis and biopsy results. Date of Discharge: 05/04/17 Minutes to complete discharge: 35 Discharge Summary Reason For Visit: DIVERTICULITIS Condition: Improved - Instructions Diet, Activity, Other Instructions: You were admitted to the hospital for colitis. Both general medical doctors and GI doctor have seen you and today you underwent colonoscopy. The colonoscopy confirms colitis but etiology has yet to be confirmed by biopsy. Medications: You will need to take 4 more days of ciprofloxacin (1 tab twice a day ) and flagyl (1 tab every 8 hours ) , they will be sent to your pharmacy. Resume taking your home medications Follow-ups: You must follow up with Dr. Richardson regarding the colon biopsy results in case you had a chronic inflammatory diorder that will need mcfp treatment . Please obtain blood work within a week to monitor the progress of antibiotic treatment. You will also need to follow up with your PCP (Dr. Errol Yang) within 2 weeks. Please obtain a blood pressure cuff (it's sent to your pharmacy) and measure your blood pressures in AM, noon, PM and before bed time and keep a log of the measurements and show it to your primary doctor. Please return to the Emergency Department if you have worsening fever, chills, have persistent nausea or recurrent vomiting, or have new or worsening symptoms STOP meloxicam and do not take any advil , motrin or ibuprofen until the biopsy results are discussed with you ( further advice will be given ) Referrals: Ishna Richardson MD [Staff Physician] - Errol Yang [Primary Care Provider] - Disposition: HOME - Home Medications Comprehensive Discharge Medication List: Ambulatory Orders Alprazolam 1 mg PO DAILY 05/02/17 Cyclobenzaprine HCl [Flexeril 10 mg] 10 mg PO TID 05/02/17 [place] Carbonate [Eskalith -] 900 mg PO HS 05/02/17 Oxycodone HCl [Oxycontin] 30 mg PO TID 05/02/17 Quetiapine Fumarate [Seroquel] 150 mg PO HS 05/02/17 Ciprofloxacin [Cipro -] 500 mg PO Q12H #8 tablet 05/04/17 Medical Supply, Miscellaneous [Blood Pressure Cuff] 1 each PRN 1 Days #1 each 05/04/17 Metronidazole [Flagyl -] 500 mg PO Q8H #12 tablet 05/04/17 Miscellaneous Drug Not In Syst [Outpatient Lab Test] 1 each ASDIR #1 misc This patient is new to me today: No Emergency Visit: No Critical Care patient: No - Discharge Referral Referred to [facility] No
--- NOTE | 2017-05-05 13:49 | PATH ---
Surgical Pathology Report Patient Name: TRISTA GOLDSTEIN Med. Rec. #: [id number] /Age/Gender: 1975 (Age: 41) / M Account: [id number] Location: [facility] MED/SURG Taken: 05/04/2017 Received: 05/04/2017 Reported: 05/05/2017 Physicians: Luc Cm M.D. Specimen(s) Received A: BX CECUM B: BX ASCENDING COLON C: BX TRANSVERSE COLON D: BX DESCENDING COLON E: BX SIGMOID COLON F: BX RECTUM COLON Clinical History Preoperative diagnosis: melena Postoperative diagnosis: Colitis Final Diagnosis A. CECUM, BIOPSY: COLONIC MUCOSA WITH NO PATHOLOGIC FINDINGS. B. ASCENDING COLON, BIOPSY: COLONIC MUCOSA WITH NO PATHOLOGIC FINDINGS. C. TRANSVERSE COLON, BIOPSY: COLONIC MUCOSA SHOWING SURFACE MUCOSAL INJURY, NEUTROPHILIC INFILTRATE, HYALINIZATION OF LAMINA PROPRIA WITH CRYPT ATROPHY/ MICROCRYPTS AND FEW FIBRIN THROMBI WITHIN CAPILLARIES. THESE FINDINGS ARE COMPATIBLE WITH ISCHEMIC COLITIS, HOWEVER SIMILAR HISTOLOGIC CHANGES MAY BE SEEN IN ASSOCIATION WITH INFECTIOUS AGENTS SUCH ENTEROHEMORRHAGIC E.COLI WELL IN ASSOCIATION WITH CERTAIN DRUGS. CORRELATION WITH CLINICAL AND RADIOLOGIC FINDINGS IS RECOMMENDED. D. DESCENDING COLON, BIOPSY: COLONIC MUCOSA SHOWING SURFACE MUCOSAL INJURY , NEUTROPHILIC INFILTRATE, HYALINIZATION OF LAMINA PROPRIA WITH CRYPT ATROPHY/ MICROCRYPTS AND FEW FIBRIN THROMBI WITHIN CAPILLARIES. THESE FINDINGS ARE COMPATIBLE WITH ISCHEMIC COLITIS, HOWEVER SIMILAR HISTOLOGIC CHANGES MAY BE SEEN IN ASSOCIATION WITH INFECTIOUS AGENTS SUCH ENTEROHEMORRHAGIC E.COLI WELL IN ASSOCIATION WITH CERTAIN DRUGS. CORRELATION WITH CLINICAL AND RADIOLOGIC FINDINGS IS RECOMMENDED. E. SIGMOID COLON, BIOPSY: COLONIC MUCOSA WITH NO PATHOLOGIC FINDINGS. F. RECTUM, BIOPSY: COLONIC/RECTAL MUCOSA SHOWING BENIGN/REACTIVE LYMPHOID AGGREGATE. Electronically Signed Effie Hoyt M.D. Gross Description A. Received in formalin, labeled "biopsy cecum" is a kaur, irregular portion of soft tissue measuring 0.3 cm. in greatest dimension. The specimen is submitted in toto in one cassette. B. Received in formalin, labeled "biopsy ascending colon" are 2 kaur, irregular portions of soft tissue averaging 0.2 cm. in greatest dimension. The specimens are submitted in toto in one cassette. C. Received in formalin, labeled "biopsy transverse colon" are 3 kaur, irregular portions of soft tissue ranging from 0.2-0.4 cm. in greatest dimension. The specimens are submitted in toto in one cassette. D. Received in formalin, labeled "biopsy descending colon" are 2 kaur, irregular portions of soft tissue averaging 0.2 cm. in greatest dimension. The specimens are submitted in toto in one cassette. E. Received in formalin, labeled "biopsy sigmoid colon" are 2 kaur, irregular portions of soft tissue measuring 0.3 and 0.4 cm. in greatest dimension. The specimens are submitted in toto in one cassette. F. Received in formalin, labeled "biopsy rectal " are 2 kaur, irregular portions of soft tissue measuring 0.2 and 0.4 cm. in greatest dimension. The specimens are submitted in toto in one cassette. 05/04/2017 [facility]05/04/2017
== END 2017-05-04 20:19 | disposition home or self-care (01) | DRG 249 ==
LOC: JER 00:09 → JERBED 05:06 → J7W 10:07
PROVIDERS: ADMIT Internal Medicine; ATTEND Internal Medicine
PROC: 0DDK8ZX Extraction of Ascending Colon, Via Natural or Artificial Opening Endoscopic, Diagnostic (ICD-10-PCS; 2017-05-04)
PROC: 0DDM8ZX Extraction of Descending Colon, Via Natural or Artificial Opening Endoscopic, Diagnostic (ICD-10-PCS; 2017-05-04)
PROC: 0DDN8ZX Extraction of Sigmoid Colon, Via Natural or Artificial Opening Endoscopic, Diagnostic (ICD-10-PCS; 2017-05-04)
PROC: 0DDP8ZX Extraction of Rectum, Via Natural or Artificial Opening Endoscopic, Diagnostic (ICD-10-PCS; 2017-05-04)
PROC: 0DDH8ZX Extraction of Cecum, Via Natural or Artificial Opening Endoscopic, Diagnostic (ICD-10-PCS; principal; 2017-05-04 10:00)
DX: K52.9 Noninfective gastroenteritis and colitis, unspecified (principal); D72.829 Elevated white blood cell count, unspecified; G47.00 Insomnia, unspecified; F51.9 Sleep disorder not due to a substance or known physiological condition, unspecified; F31.9 Bipolar disorder, unspecified; K29.70 Gastritis, unspecified, without bleeding; M54.5 Low back pain; I10 Essential (primary) hypertension; K92.2 Gastrointestinal hemorrhage, unspecified
CPT/HCPCS: 36415; 71045-TC; 74177-TC; 80048; 80053; 80178; 81003; 81015; 82272; 83036; 83605; 83690; 83735; 84100; 85025; 85027; 85610; 85730; 86140; 86850; 86900; 86901; 88305-TC; 93005; 93010; 93306-TC; 99285-25